=== PATIENT | female | born 1955 | race Caucasian/White ===

== ENCOUNTER 2017-01-04 00:56 | Emergency (ER) | payer OTHER ==
[2017-01-04 01:02] VITALS: TEMP 97.5
[2017-01-04] MEDS ORDERED: ONDANSETRON 4 MG/2 ML VIAL ONE (01:12)
[2017-01-04] MEDS ORDERED: ONDANSETRON 4 MG/2 ML VIAL IVP ONE (01:16)
[2017-01-04] MEDS ORDERED: NS 1,000 ML IV ONE ×2 (01:16)
--- NOTE | 2017-01-04 01:34 | EDPHY ---
H & P Stated Complaint: N/V/D Time Seen by Provider: 01/04/17 01:07 HPI/ROS: Chief complaint: Nausea, vomiting, diarrhea HPI: 61-year-old female with no significant past medical history presenting with rapid onset nausea vomiting and some loose stools. Patient states that she ate at [employer] this evening and felt that some of it tasted bit off. She states approximately 3 hours later she developed the nausea and vomiting. She has had multiple episodes of vomiting. No blood. Has some crampy abdominal pain which moves running comes and goes. No fevers or chills. Has had some loose stools. No melena or blood per rectum. Has past medical history depression. No abdominal surgeries. Other family members did eat there and no on else is having any symptoms. ROS: 10 point Review of Systems is negative except as noted in the HPI. Past medical history: Depression Medications: Celexa and Cymbalta Allergies: Aspirin and tramadol Physical exam: Gen: Awake, Alert, No Distress HEENT: Nose: no rhinorrhea Eyes: PERRLA, EOMI Mouth: Moist mucosa Neck: Supple, no JVD Chest: nontender, lungs clear to auscultation Heart: S1, S2 normal, no murmur Abd: Soft, non-tender, no guarding Back: no CVA tenderness, no midline tenderness Ext: no edema, non-tender Skin: no rash Neuro: CN II-XII intact, Sensation grossly intact, Strength 5/5 in bilateral upper and lower extremities - Personal History Current Tetanus/Diphtheria Vaccine: Unsure Current Tetanus Diphtheria and Acellular Pertussis (TDAP): Unsure - Medical/Surgical History Hx Asthma: Yes Hx Chronic Respiratory Disease: No Hx Diabetes: No Hx Cardiac Disease: No Hx Renal Disease: No Hx Cirrhosis: No Hx Alcoholism: No Hx HIV/AIDS: No Hx Splenectomy or Spleen Trauma: No - Social History Smoking Status: Never smoked Constitutional: Initial Vital Signs Temperature (C) 36.4 C 01/04/17 00:58 Heart Rate 93 01/04/17 00:58 Respiratory Rate 20 01/04/17 00:58 Blood Pressure 112/83 H 01/04/17 00:58 O2 Sat (%) 100 01/04/17 00:58 O2 Delivery Mode Room Air Allergies/Adverse Reactions: aspirin [Aspirin] Allergy (Unknown, Verified 09/11/12 01:52) tramadol [Tramadol] Allergy (Unknown, Verified 09/11/12 01:52) Home Medications: Medication Instructions Recorded DULoxetine [Cymbalta 60 MG (RX)] 90 mg PO DAILY 09/11/12 Promethazine HCl [Phenergan 25mg 25 mg MT Q4-6PRN PRN #10 suppr 09/11/12 supp (RX)] Sertraline HCl [Zoloft 50mg (RX)] 0 mg PO DAILY 09/11/12 Medical Decision Making ED Course/Re-evaluation: 0235 patient is feeling much better. Will p.o. challenge her. Abdomen is soft and benign. 0330 patient is tolerating p. o.. She is feeling much improved. Will discharge with a Zofran to go and follow up with primary care physician. - Data Points Laboratory Results: Laboratory Results 01/04/17 01:11 01/04/17 01:11 01/04/17 01/04/17 01:11 01:11 WBC 15.85 10^3/uL H 10^3/uL (3.80-9.50) RBC 4.84 10^6/uL 10^6/uL (4.18-5.33) Hgb 15.5 g/dL g/dL (12.6-16.3) Hct 45.6 % % (38.0-47.0) MCV 94.2 fL fL (81.5-99.8) MCH 32.0 pg pg (27.9-34.1) MCHC 34.0 g/dL g/dL (32.4-36.7) RDW 13.6 % % (11.5-15.2) Plt Count 299 10^3/uL 10^3/uL (150-400) MPV 10.8 fL fL (8.7-11.7) Neut % (Auto) 88.4 % H % (39.3-74.2) Lymph % (Auto) 6.1 % L % (15.0-45.0) [place] % (Auto) 5.1 % % (4.5-13.0) Eos % (Auto) 0.0 % L % (0.6-7.6) Baso % (Auto) 0.1 % L % (0.3-1.7) Nucleat RBC Rel Count 0.0 % % (0.0-0.2) Absolute Neuts (auto) 14.02 10^3/uL H 10^3/uL (1.70-6.50) Absolute Lymphs (auto) 0.96 10^3/uL L 10^3/uL (1.00-3.00) Absolute Monos (auto) 0.81 10^3/uL H 10^3/uL (0.30-0.80) Absolute Eos (auto) 0.00 10^3/uL L 10^3/uL (0.03-0.40) Absolute Basos (auto) 0.02 10^3/uL 10^3/uL (0.02-0.10) Absolute Nucleated RBC 0.00 10^3/uL 10^3/uL (0-0.01) Immature Gran % 0.3 % % (0.0-1.1) Immature Gran # 0.04 10^3/uL 10^3/uL (0.00-0.10) Sodium 145 mEq/L H mEq/L (134-144) Potassium 3.8 mEq/L mEq/L (3.5-5.2) Chloride 106 mEq/L mEq/L (97-110) Carbon Dioxide 25 mEq/l mEq/l (22-31) Anion Gap 14 mEq/L mEq/L (8-16) BUN 19 mg/dL mg/dL (7-23) Creatinine 0.7 mg/dL mg/dL (0.6-1.0) Estimated GFR > 60 Glucose 108 mg/dL H mg/dL (70-100) Calcium 9.8 mg/dL mg/dL (8.5-10.4) Total Bilirubin 0.5 mg/dL mg/dL (0.1-1.4) Conjugated Bilirubin 0.3 mg/dL mg/dL (0.0-0.5) Unconjugated Bilirubin 0.2 mg/dL mg/dL (0.0-1.1) AST 37 IU/L IU/L (14-46) ALT 39 IU/L IU/L (9-52) Alkaline Phosphatase 89 IU/L IU/L (38-126) Total Protein 7.5 g/dL g/dL (6.3-8.2) Albumin 4.8 g/dL g/dL (3.5-5.0) Lipase 270.0 IU/L IU/L (23-300) Medications Given: Discontinued Medications Sodium Chloride (Ns) 1,000 mls @ 0 mls/hr IV ONCE ONE PRN Reason: Wide Open Stop: 01/04/17 01:17 Last Admin: 01/04/17 01:16 Dose: 1,000 mls Sodium Chloride (Ns) 1,000 mls @ 0 mls/hr IV ONCE ONE PRN Reason: Wide Open Stop: 01/04/17 01:17 Last Admin: 01/04/17 01:17 Dose: 1,000 mls Ondansetron HCl (Zofran) 4 mg IVP EDNOW ONE Stop: 01/04/17 01:17 Last Admin: 01/04/17 01:17 Dose: 4 mg Departure - Departure Disposition: Home, Routine, Self-Care Clinical Impression: Vomiting and diarrhea Condition: Good Instructions: Acute Nausea and Vomiting (ED) Additional Instructions: You may take ondansetron every 4-6 hours as needed for nausea vomiting. Return to the emergency depart for increasing pain, fevers, chills, or any other concerns. Follow up with primary care doctor in 2-3 days if symptoms are not improving. Referrals: Ariana Howard MD [Primary Care Provider] - As per Instructions
[2017-01-04 02:25] LABS: % IMMATURE GRANULYOCYTES 0.3 % (0.0-1.1); ABSOLUTE IMMATURE GRANULOCYTES 0.04 10^3/uL (0.00-0.10); ADD DIFF? NO; ADD MORPH? NO; ADD SCAN? NO; ATYPICAL LYMPHOCYTE FLAG 0 (0-99); FRAGMENT RBC FLAG 0 (0-99); HEMATOCRIT 45.6 % (38.0-47.0); HEMOGLOBIN 15.5 g/dL (12.6-16.3); LEFT SHIFT FLG 20 (0-99); LIPEMIA HEMOLYSIS FLAG 90 (0-99); MEAN CELL VOLUME 94.2 fL (81.5-99.8); MEAN PLATELET VOLUME 10.8 fL (8.7-11.7); PLATELET CLUMPS FLAG 10 (0-99); PLATELET COUNT 299 10^3/uL (150-400); RED BLOOD CELL COUNT 4.84 10^6/uL (4.18-5.33); RED CELL DISTRIBUTION WIDTH 13.6 % (11.5-15.2)
[2017-01-04 02:31] LABS: ALBUMIN 4.8 g/dL (3.5-5.0); ALKALINE PHOSPHATASE 89 IU/L (38-126); ANION GAP 14 mEq/L (8-16); ASPARTATE AMINOTRANSFERASE 37 IU/L (14-46); BILIRUBIN,TOTAL 0.5 mg/dL (0.1-1.4); BILIRUBIN-CONJUGATED 0.3 mg/dL (0.0-0.5); BILIRUBIN-UNCONJUGATED 0.2 mg/dL (0.0-1.1); CALCIUM 9.8 mg/dL (8.5-10.4); CARBON DIOXIDE 25 mEq/l (22-31); CHLORIDE 106 mEq/L (97-110); CREATININE 0.7 mg/dL (0.6-1.0); GLOMERULAR FILTRATION RATE > 60; GLUCOSE 108 mg/dL (70-100); POTASSIUM 3.8 mEq/L (3.5-5.2); SODIUM 145 mEq/L (134-144); TOTAL PROTEIN 7.5 g/dL (6.3-8.2)
[2017-01-04 02:32] LABS: ALANINE AMINOTRANSFERASE 39 IU/L (9-52)
[2017-01-04 03:04] VITALS: BP 116/93; PULSE 96; RESP 16; O2SAT 93
[2017-01-04] MEDS ORDERED: ONDANSETRON 4MG PREPACK#2 BTL TAKEHOME ONE (03:27)
== END 2017-01-04 03:38 | disposition home or self-care (01) ==
DX: R11.10 Vomiting, unspecified (principal); R19.7 Diarrhea, unspecified; J45.909 Unspecified asthma, uncomplicated
CPT/HCPCS: 96374; J2405

== ENCOUNTER → 2017-11-29 | Outpatient (CLI) | payer OTHER | LOC: FIMAGING 13:58 | PROVIDERS: ATTEND Family Medicine | DX: Z12.31 Encounter for screening mammogram for malignant neoplasm of breast (principal) ==

== ENCOUNTER → 2018-10-31 | Outpatient (CLI) | payer OTHER | LOC: FIMAGING 12:28 | DX: R93.89 Abnormal findings on diagnostic imaging of other specified body structures (principal); D25.9 Leiomyoma of uterus, unspecified ==

== ENCOUNTER → 2019-04-03 | Outpatient (CLI) | payer OTHER | LOC: FIMAGING 13:40 ==